=== PATIENT | male | born 1940 | race Caucasian/White ===

== ENCOUNTER 2018-03-11 05:53 | Day surgery (SDC) | payer MEDICARE, OTHER ==
[2018-03-10 11:00] LABS: BASOPHILS % (AUTO) 0.4 % (0-1); EOSINOPHILS # (AUTO) 0.2 X10'3 (0-0.9); EOSINOPHILS % (AUTO) 2.6 % (0-6); HEMATOCRIT 45.3 % (42.0-52.0); HEMOGLOBIN 15.1 g/dl (14.0-17.9); LYMPHOCYTES # (AUTO) 1.6 X10'3 (1.1-4.8); LYMPHOCYTES % (AUTO) 24.7 % (21-51); MEAN CORPUSCULAR HEMOGLOBIN 30.6 PG (27.0-31.0); MEAN CORPUSCULAR HGB CONC 33.4 % (33.0-36.5); MEAN CORPUSCULAR VOLUME 91.4 FL (78-98); MEAN PLATELET VOLUME 8.5 FL (7.4-10.4); MONOCYTES # (AUTO) 0.5 X10'3 (0-0.9); MONOCYTES % (AUTO) 7.7 % (2-12); NEUTROPHILS # (AUTO) 4.1 X10'3 (1.8-7.7); NEUTROPHILS % (AUTO) 64.6 % (42-75); PLATELET COUNT 180 X10'3 (140-440); RED BLOOD COUNT 4.95 X10'6 (4.70-6.10); RED CELL DISTRIBUTION WIDTH 15.6 % (11.5-14.5); WHITE BLOOD COUNT 6.3 X10'3 (4.5-11.0)
[2018-03-10 11:11] LABS: ALBUMIN 3.6 G/DL (3.4-5.0); ANION GAP 5 (8-16); BLOOD UREA NITROGEN 24 MG/DL (7-18); CALCIUM 8.9 MG/DL (8.5-10.1); CHLORIDE 105 MMOL/L (99-107); GLUCOSE 102 MG/DL (70-104); POTASSIUM 4.9 MMOL/L (3.5-5.1); SODIUM 141 MMOL/L (135-145); TOTAL CARBON DIOXIDE 30.7 MMOL/L (24-32); eGFR 45 ML/MIN
[2018-03-10 11:24] LABS: INR 1.1 INR
[~2018-03-11] VITALS: Ht 185.4 cm; Wt 99.2 kg
[2018-03-11] VITALS (17 sets, daily range): BP systolic 105–141; BP diastolic 62–97
[~2018-03-11 05:53] MED LIST: ASPI-1264 PO; ATOR10TA87 PO; FESO8TAB PO; FOLI-43 PO; OMEP-84 PO; SERT-128 PO; SILD100T PO
[2018-03-11] MEDS ORDERED: MIDAZolam 5mg/ml 2ml vial IV ONE (06:20)
[2018-03-11] MEDS ORDERED: morphine 10mg/ml inj. IV ONE (06:20)
[2018-03-11] MEDS ORDERED: atropine 0.1mg/ml 10ml syringe IV ONE (06:20)
[2018-03-11] MEDS ORDERED: normal saline 1000ml 1,000 ML IV SCH (06:20)
[2018-03-11] MEDS ORDERED: diphenhydrAMINE 25mg capsule PO ONE (06:20)
[2018-03-11] MEDS ORDERED: LORazepam 0.5 MG tablet PO ONE (06:20)
[2018-03-11] MEDS ORDERED: amiodarone in dextrose, iso-osm 150mg/100ml bag IV ONE (06:20)
[2018-03-11] MEDS ORDERED: COU5T PO (06:23)
[2018-03-11] MEDS ORDERED: OMEP20CA10 PO (06:23)
[2018-03-11] MEDS ORDERED: FOLI1TAB16 PO (06:23)
[2018-03-11] MEDS ORDERED: CARV3.122 PO (06:23)
[2018-03-11] MEDS ORDERED: SOTA80TA PO (06:23)
[2018-03-11] MEDS ORDERED: FLO0.4C PO (06:23)
[2018-03-11] MEDS ORDERED: ATOR20TA PO (06:23)
[2018-03-11] MEDS ORDERED: LOSA50TA3 PO (06:23)
== END 2018-03-11 10:40 | disposition home or self-care (01) ==
LOC: SSTAY O 05:53
PROVIDERS: ATTEND Internal Medicine Cardiovascular Disease
DX: I48.1 Persistent atrial fibrillation (principal); I49.5 Sick sinus syndrome; E78.5 Hyperlipidemia, unspecified; I45.81 Long QT syndrome; I12.9 Hypertensive chronic kidney disease with stage 1 through stage 4 chronic kidney disease, or unspecified chronic kidney disease; N18.9 Chronic kidney disease, unspecified; G89.29 Other chronic pain; M19.90 Unspecified osteoarthritis, unspecified site; K21.9 Gastro-esophageal reflux disease without esophagitis; Z86.73 Personal history of transient ischemic attack (TIA), and cerebral infarction without residual deficits; Z79.01 Long term (current) use of anticoagulants; Z79.899 Other long term (current) drug therapy; Z96.642 Presence of left artificial hip joint; Z98.890 Other specified postprocedural states; Z83.3 Family history of diabetes mellitus
CPT/HCPCS: 36415; 80048; 85025; 85610; 92960; 93005; J0461; J2250; J2270; J7030; J0282

== ENCOUNTER 2018-05-22 09:49 | Day surgery (SDC) | payer MEDICARE, OTHER ==
[2018-05-21 11:23] LABS: BASOPHILS % (AUTO) 0.5 % (0-1); EOSINOPHILS # (AUTO) 0.1 X10'3 (0-0.9); EOSINOPHILS % (AUTO) 2.2 % (0-6); HEMATOCRIT 44.9 % (42.0-52.0); HEMOGLOBIN 14.5 g/dl (14.0-17.9); LYMPHOCYTES # (AUTO) 1.5 X10'3 (1.1-4.8); LYMPHOCYTES % (AUTO) 24.3 % (21-51); MEAN CORPUSCULAR HEMOGLOBIN 29.5 PG (27.0-31.0); MEAN CORPUSCULAR HGB CONC 32.4 % (33.0-36.5); MEAN CORPUSCULAR VOLUME 91.2 FL (78-98); MEAN PLATELET VOLUME 8.6 FL (7.4-10.4); MONOCYTES # (AUTO) 0.5 X10'3 (0-0.9); MONOCYTES % (AUTO) 7.9 % (2-12); NEUTROPHILS # (AUTO) 4.2 X10'3 (1.8-7.7); NEUTROPHILS % (AUTO) 65.1 % (42-75); PLATELET COUNT 194 X10'3 (140-440); RED BLOOD COUNT 4.92 X10'6 (4.70-6.10); RED CELL DISTRIBUTION WIDTH 14.1 % (11.5-14.5); WHITE BLOOD COUNT 6.3 X10'3 (4.5-11.0)
[2018-05-21 11:32] LABS: ALBUMIN 3.5 G/DL (3.4-5.0); ANION GAP 5 (8-16); BLOOD UREA NITROGEN 21 MG/DL (7-18); BUN/CREATININE RATIO 14.1 (5.4-32.0); CALCIUM 8.9 MG/DL (8.5-10.1); CHLORIDE 104 MMOL/L (99-107); CREATININE 1.49 MG/DL (0.60-1.10); GLUCOSE 99 MG/DL (70-104); MAGNESIUM 2.1 MG/DL (1.5-2.4); POTASSIUM 4.6 MMOL/L (3.5-5.1); SODIUM 139 MMOL/L (135-145); TOTAL CARBON DIOXIDE 29.6 MMOL/L (24-32); eGFR 46 ML/MIN
[2018-05-21 11:34] LABS: INR 1.3 INR; PARTIAL THROMBOPLASTIN TIME 31 SECONDS (22-32); PROTHROMBIN TIME 13.2 SECONDS (9.0-12.0)
[2018-05-22] VITALS (12 sets, daily range): BP systolic 116–161; BP diastolic 62–92
[~2018-05-22] VITALS: Ht 185.4 cm; Wt 90.7 kg
[~2018-05-22 09:49] MED LIST changes: -ASPI-1264 PO; -ATOR10TA87 PO; +ATOR20TA PO; +CARV3.122 PO; +COU5T PO; +FLO0.4C PO; -FOLI-43 PO; +FOLI1TAB16 PO; +LOSA50TA3 PO; -OMEP-84 PO; +OMEP20CA10 PO; +SOTA80TA PO
[2018-05-22] MEDS ORDERED: ceFAZolin 1GM/D5W- ADD-VANTAGE 50 ML IV ONE ×2 (10:20→11:58)
[2018-05-22] MEDS ORDERED: normal saline 1000ml 1,000 ML IV PRN (10:20)
[2018-05-22] MEDS ORDERED: midazolam 2 mg/2 ml injection ONE (11:59)
[2018-05-22] MEDS ORDERED: fentaNYL/PF 50MCG/1 ML 2ML syringe ONE (11:59)
[2018-05-22] MEDS ORDERED: cefazolin/dext.iso 2gm/50ml 50 ML IV ONE (11:59)
[2018-05-22] MEDS ORDERED: lidocaine 1%/epinephrine 1:100,000 injection 50ml vial ONE (11:59)
[2018-05-22] MEDS ORDERED: FURO-150 PO (12:00)
[2018-05-22] MEDS ORDERED: ceFAZolin 1000mg inj ONE (12:46)
[2018-05-22] MEDS ORDERED: HYDROcodone/acetaminophen 5mg/325mg tablet PO PRN (14:55)
[2018-05-22] MEDS ORDERED: HYDROcodone/acetaminophen 10/325mg tab PO PRN (14:55)
[2018-05-22] MEDS ORDERED: ceFAZolin 1GM/D5W- ADD-VANTAGE 50 ML IV SCH (16:00)
== END 2018-05-22 19:00 | disposition home or self-care (01) ==
LOC: SSTAY O 09:49
PROVIDERS: ATTEND Internal Medicine Cardiovascular Disease
DX: I49.5 Sick sinus syndrome (principal); G89.29 Other chronic pain; I12.9 Hypertensive chronic kidney disease with stage 1 through stage 4 chronic kidney disease, or unspecified chronic kidney disease; N18.9 Chronic kidney disease, unspecified; E78.5 Hyperlipidemia, unspecified; M19.90 Unspecified osteoarthritis, unspecified site; I48.1 Persistent atrial fibrillation; K21.9 Gastro-esophageal reflux disease without esophagitis; H91.8X3 Other specified hearing loss, bilateral; Z86.69 Personal history of other diseases of the nervous system and sense organs; Z86.73 Personal history of transient ischemic attack (TIA), and cerebral infarction without residual deficits; Z96.642 Presence of left artificial hip joint; Z79.01 Long term (current) use of anticoagulants; Z79.899 Other long term (current) drug therapy; Z98.890 Other specified postprocedural states; Z83.3 Family history of diabetes mellitus
CPT/HCPCS: 33208; 36415; 71046; 80048; 83735; 85025; 85610; 85730; 93005; 99152; 99153; C1785; C1898; J0690; J2250; J3010; J3490; A4565; A4620; C1894

== ENCOUNTER 2018-06-30 12:04 | Outpatient (CLI) | payer MEDICARE, OTHER ==
[~2018-06-30 12:04] MED LIST changes: -CARV3.122 PO; +FURO-150 PO
== END 2018-06-30 23:59 | disposition home or self-care (01) ==
LOC: RAD 12:04
PROVIDERS: ATTEND Internal Medicine Cardiovascular Disease
DX: Z48.812 Encounter for surgical aftercare following surgery on the circulatory system (principal); I48.1 Persistent atrial fibrillation; I10 Essential (primary) hypertension; Z95.0 Presence of cardiac pacemaker; Z79.899 Other long term (current) drug therapy
CPT/HCPCS: 71046

== ENCOUNTER 2018-07-07 08:08 | Day surgery (SDC) | payer MEDICARE, OTHER ==
[2018-07-07] VITALS (11 sets, daily range): BP systolic 119–151; BP diastolic 70–88
[~2018-07-07] VITALS: Ht 185.4 cm; Wt 97.0 kg
[2018-07-07 09:20] LABS: BASOPHILS # (AUTO) 0.1 X10'3 (0-0.2); EOSINOPHILS # (AUTO) 0.1 X10'3 (0-0.9); EOSINOPHILS % (AUTO) 2.6 % (0-6); HEMATOCRIT 46.5 % (42.0-52.0); HEMOGLOBIN 15.2 g/dl (14.0-17.9); LYMPHOCYTES # (AUTO) 1.7 X10'3 (1.1-4.8); LYMPHOCYTES % (AUTO) 31.5 % (21-51); MEAN CORPUSCULAR HEMOGLOBIN 30.3 PG (27.0-31.0); MEAN CORPUSCULAR HGB CONC 32.7 g/dL (33.0-36.5); MEAN CORPUSCULAR VOLUME 92.6 FL (78-98); MEAN PLATELET VOLUME 8.7 FL (7.4-10.4); MONOCYTES # (AUTO) 0.4 X10'3 (0-0.9); MONOCYTES % (AUTO) 7.4 % (2-12); NEUTROPHILS % (AUTO) 57.5 % (42-75); PLATELET COUNT 150 X10'3 (140-440); RED BLOOD COUNT 5.03 X10'6 (4.70-6.10); RED CELL DISTRIBUTION WIDTH 15.6 % (11.5-14.5); WHITE BLOOD COUNT 5.3 X10'3 (4.5-11.0)
[2018-07-07 09:21] LABS: ALBUMIN 3.7 G/DL (3.4-5.0); ANION GAP 8 (8-16); BLOOD UREA NITROGEN 34 MG/DL (7-18); BUN/CREATININE RATIO 21.7 (5.4-32.0); CALCIUM 9.1 MG/DL (8.5-10.1); CHLORIDE 103 MMOL/L (99-107); CREATININE 1.57 MG/DL (0.60-1.10); GLUCOSE 100 MG/DL (70-104); INR 1.2 INR; POTASSIUM 4.4 MMOL/L (3.5-5.1); PROTHROMBIN TIME 11.6 SECONDS (9.0-12.0); SODIUM 138 MMOL/L (135-145); TOTAL CARBON DIOXIDE 27.5 MMOL/L (24-32); eGFR 43 ML/MIN
[2018-07-07] MEDS ORDERED: normal saline 1000ml 1,000 ML IV SCH (10:40)
[2018-07-07] MEDS ORDERED: fentaNYL/PF 50MCG/1 ML 2ML syringe ONE (11:24)
[2018-07-07] MEDS ORDERED: midazolam 2 mg/2 ml injection ONE (11:24)
[2018-07-07] MEDS ORDERED: vancomycin 1,000mg inj ONE (11:25)
[2018-07-07] MEDS ORDERED: lidocaine 1%/epinephrine 1:100,000 injection 50ml vial ONE (11:25)
[2018-07-07] MEDS ORDERED: cefazolin/dext.iso 2gm/50ml 50 ML IV ONE (11:35)
[2018-07-07] MEDS ORDERED: ceFAZolin 1GM/D5W- ADD-VANTAGE 50 ML IV SCH (18:00)
== END 2018-07-07 19:05 | disposition home or self-care (01) ==
LOC: SSTAY O 08:08
PROVIDERS: ATTEND Internal Medicine Cardiovascular Disease
DX: Z45.018 Encounter for adjustment and management of other part of cardiac pacemaker (principal); I48.91 Unspecified atrial fibrillation; I12.9 Hypertensive chronic kidney disease with stage 1 through stage 4 chronic kidney disease, or unspecified chronic kidney disease; N18.9 Chronic kidney disease, unspecified; I49.5 Sick sinus syndrome; I48.1 Persistent atrial fibrillation; E78.5 Hyperlipidemia, unspecified; M19.90 Unspecified osteoarthritis, unspecified site; Z86.73 Personal history of transient ischemic attack (TIA), and cerebral infarction without residual deficits; Z79.899 Other long term (current) drug therapy
CPT/HCPCS: 33215; 36415; 80048; 85025; 85610; 93005; 99152; 99153; J0690; J2250; J3010; J3370; J3490; J7030; A4565